=== PATIENT | female | born 1970 | race Caucasian/White ===

== ENCOUNTER → 2017-03-08 | Outpatient (CLI) | payer OTHER | END | disposition home or self-care (01) | LOC: RAD 10:55 | DX: R50.9 Fever, unspecified (principal); R53.83 Other fatigue ==

== ENCOUNTER 2017-06-17 13:52 | Emergency (ER) | payer OTHER ==
[~2017-06-17] VITALS: Ht 154.9 cm; Wt 89.8 kg
[2017-06-17] MEDS ORDERED: AMLODIPINE BESY10 MG PO (13:57)
[2017-06-17] MEDS ORDERED: LABETALOL HCL100 MG PO (13:57)
[2017-06-17] MEDS ORDERED: METFORMIN HCL500 MG PO (13:58)
[2017-06-17] MEDS ORDERED: LISINOPRIL40 MG PO (13:58)
[2017-06-17] MEDS ORDERED: HYDROCHLOROTHIA25 M1 PO (13:58)
[2017-06-17 14:40] LABS: BASO # 0.1 10*3/uL (0.0-0.1); BASO % 0.9 % (0.0-1.0); EOS # 0.2 10*3/uL (0.0-0.4); EOS % 2.5 % (1.0-4.0); HEMATOCRIT 46.8 % (37.0-47.0); HEMOGLOBIN 15.8 g/dl (12.0-16.0); LYMPH % 25.8 % (27.0-41.0); MEAN CELL VOLUME 89.7 fl (81.0-99.0); MEAN CORPUSCULAR HGB 30.3 pg (27.0-31.0); MEAN CORPUSCULAR HGB CONC 33.8 g/dl (33.0-37.0); MEAN PLATELET VOLUME 12.4 fl (9.6-12.3); MONO # 0.6 10*3/uL (0.1-1.0); MONO % 7.7 % (3.0-9.0); NEUT # 4.7 10*3/uL (2.3-7.9); NEUT % 62.3 % (47.0-73.0); PLATELET COUNT AUTOMATED 180 10*3/uL (130-400); RED BLOOD COUNT 5.22 10*6/uL (4.10-5.10); RED CELL DISTRI WIDTH 12.7 % (0-14.5); WHITE BLOOD COUNT 7.6 10*3/uL (4.8-10.8)
[2017-06-17 14:46] LABS: ACT PARTIAL THROMBO TIME 21.6 SECONDS (20.8-31.5)
[2017-06-17 14:55] LABS: ALBUMIN 3.5 gm/dl (3.1-4.5); ALKALINE PHOSPHATASE 126 U/L (45-117); BUN 8 mg/dl (7-24); CHLORIDE 100 mmol/L (98-107); CREATININE 0.84 mg/dL (0.55-1.02); LIPASE 85 U/L (73-393); POTASSIUM 3.8 mmol/L (3.5-5.1); SGOT/AST 36 IU/L (3-35); SGPT/ALT 54 U/L (12-78); SODIUM 134 mmol/L (136-145); TOTAL PROTEIN 7.6 gm/dL (6.4-8.2); TROPONIN I < 0.015 ng/ml (<0.045)
[2017-06-17] MEDS ORDERED: LABETALOL HYDR200 MG PO (16:28)
[2017-06-17] MEDS ORDERED: CYCLOBENZAPRINE10 MG PO (16:30)
== END 2017-06-17 16:32 | disposition home or self-care (01) ==
LOC: ED 13:52
PROVIDERS: Emergency Medicine
DX: M54.12 Radiculopathy, cervical region (principal); I10 Essential (primary) hypertension; Z98.890 Other specified postprocedural states; Z79.899 Other long term (current) drug therapy; Z90.710 Acquired absence of both cervix and uterus

== ENCOUNTER → 2019-03-17 | Outpatient (CLI) | payer OTHER ==
[~2019-03-17] MED LIST: AMLODIPINE BESY10 MG PO; CYCLOBENZAPRINE10 MG PO; HYDROCHLOROTHIA25 M1 PO; LABETALOL HCL100 MG PO; LABETALOL HYDR200 MG PO; LISINOPRIL40 MG PO; METFORMIN HCL500 MG PO
== END | disposition home or self-care (01) ==
LOC: RAD 13:31
DX: M25.571 Pain in right ankle and joints of right foot (principal)

== ENCOUNTER 2023-11-11 12:10 | Inpatient (IN) | payer BC ==
[~2023-11-11] VITALS: Ht 154.9 cm; Wt 83.9 kg
[~2023-11-11 12:10] MED LIST changes: -METFORMIN HCL500 MG PO; +METFORMIN HYDR500 MG PO
[2023-11-11 12:16] VITALS: BP 106/65
[2023-11-11] MEDS ORDERED: SODIUM CHLORIDE 0.9% 1,000 ML IV ONE ×3 (12:25→12:35)
[2023-11-11] MEDS ORDERED: ACETAMINOPHEN 325 MG TAB PO ONE (12:40)
[2023-11-11 13:05] LABS: HEMATOCRIT 43.3 % (37.0-47.0); MANUAL DIFF REFLEX YES; MEAN CELL VOLUME 91.4 fl (81.0-99.0); MEAN CORPUSCULAR HGB 29.1 pg (27.0-31.0); MEAN CORPUSCULAR HGB CONC 31.9 g/dl (33.0-37.0); MEAN PLATELET VOLUME 12.4 fl (9.6-12.3); PLATELET COUNT AUTOMATED 120 10*3/uL (130-400); RED BLOOD COUNT 4.74 10*6/uL (4.10-5.10); RED CELL DISTRI WIDTH 13.3 % (0-14.5); WHITE BLOOD COUNT 18.3 10*3/uL (4.8-10.8)
[2023-11-11] MEDS ORDERED: ACETAMINOPHEN 325 MG/10.15 ML UDC PO ONE (13:05)
[2023-11-11 13:23] LABS: TOTAL CELLS COUNTED 100 #CELLS
[2023-11-11 13:24] LABS: BURR CELLS FEW; PLATELET SUFFICIENCY LOW (NORMAL); POLYCHROMASIA SLIGHT; POTASSIUM 4.3 mmol/L (3.4-5.1); TOTAL PROTEIN 7.2 gm/dL (6.0-8.0)
[2023-11-11] MEDS ORDERED: MOUNJARO5 MG/0.51 SQ (13:36)
[2023-11-11] MEDS ORDERED: OXYBUTYNIN10 MG PO (13:36)
[2023-11-11] MEDS ORDERED: OMEPRAZOLE40 MG PO (13:36)
[2023-11-11] MEDS ORDERED: LOSARTAN POTAS100 M1 PO (13:37)
[2023-11-11] MEDS ORDERED: Ceftriaxone Sodium 1 GM/10 ML SYR IV ONE (13:50)
[2023-11-11 14:00] VITALS: BP 108/61
[2023-11-11 14:50] VITALS: BP 108/61
[2023-11-11] MEDS ORDERED: Piperacillin Sodium/Tazobact 50 ML IV ONE (15:10)
[2023-11-11] MEDS ORDERED: DEXTROSE 10 % IN WATER 250 ML IV PRN (16:50)
[2023-11-11] MEDS ORDERED: SODIUM CHLORIDE 0.9% 1,000 ML IV SCH (16:55)
[2023-11-11] MEDS ORDERED: DICLOFENAC SODIUM 50 MG TAB PO SCH (17:00)
[2023-11-11 18:14] VITALS: BP 103/56
[2023-11-11 18:25] LABS: BILIRUBIN 3+ (Negative); BLOOD 1+ (Negative); CLARITY Turbid (Clear); COLOR Dark Yellow (Yellow); GLUCOSE 1+ (Negative); KETONE Negative (Negative); LEUKO ESTERASE 3+ (Negative); NITRITE Positive (Negative)
[2023-11-11 18:49] LABS: EPITHELIAL CELLS TNTC; WBC TNTC wbc/hpf (0-5)
[2023-11-11 18:50] LABS: BACTERIA 2+
[2023-11-11 19:41] VITALS: BP 96/58
[2023-11-11 20:15] VITALS: BP 116/68
[2023-11-11] MEDS ORDERED: ACETAMINOPHEN 500 MG TAB PO PRN (21:00)
[2023-11-11] MEDS ORDERED: INSULIN LISPRO 1 UNIT/0.01 ML SQ SCH (22:00)
[2023-11-11] MEDS ORDERED: Oxybutynin Chloride 5 MG TAB PO SCH (22:00)
[2023-11-11] MEDS ORDERED: Labetalol Hydrochloride 200 MG TAB PO SCH (22:00)
[2023-11-12] VITALS: BP 110/66
[2023-11-12] MEDS ORDERED: Piperacillin Sodium/Tazobact 2.25 GM in SODIUM CHLORIDE 0.9% 50 ML IV SCH
[2023-11-12] MEDS ORDERED: OMEPRAZOLE 20 MG CAP PO SCH (06:00)
[2023-11-12] MEDS ORDERED: ALBUTEROL S5 MG/1 ML INH (06:12)
[2023-11-12 06:26] LABS: HEMATOCRIT 38.2 % (37.0-47.0); MEAN CORPUSCULAR HGB 29.4 pg (27.0-31.0); MEAN CORPUSCULAR HGB CONC 31.9 g/dl (33.0-37.0); PLATELET COUNT AUTOMATED 121 10*3/uL (130-400); RED BLOOD COUNT 4.15 10*6/uL (4.10-5.10); RED CELL DISTRI WIDTH 13.8 % (0-14.5); WHITE BLOOD COUNT 16.9 10*3/uL (4.8-10.8)
[2023-11-12 07:01] LABS: POTASSIUM 4.4 mmol/L (3.4-5.1)
[2023-11-12 07:24] LABS: MANUAL DIFF REFLEX YES
[2023-11-12 07:28] LABS: PLATELET SUFFICIENCY LOW (NORMAL); TOTAL CELLS COUNTED 100 #CELLS
[2023-11-12 07:29] LABS: VACUOLATION OF NEUTROPHILS SLIGHT
[2023-11-12 08:00] VITALS: BP 131/73
[2023-11-12] MEDS ORDERED: LISINOPRIL 40 MG TAB PO SCH (10:00)
[2023-11-12] MEDS ORDERED: HYDROCHLOROTHIAZIDE 25 MG TAB PO SCH (10:00)
[2023-11-12] MEDS ORDERED: Losartan Potassium 50 MG TAB PO SCH (10:00)
[2023-11-12] MEDS ORDERED: amLODIPine besylate 10 MG TAB PO SCH (10:00)
[2023-11-12] MEDS ORDERED: Benzocaine/Menthol 1 LOZ LOZENGE PO PRN (11:05)
[2023-11-12 12:00] VITALS: BP 130/76
[2023-11-12] MEDS ORDERED: Labetalol Hydrochloride 100 MG TAB PO SCH (14:00)
[2023-11-12 16:00] VITALS: BP 130/60
[2023-11-12] MEDS ORDERED: Ceftriaxone Sodium 2 GM in SYRINGE INFUSION 20 ML IV SCH (18:00)
[2023-11-12 20:00] VITALS: BP 94/62
[2023-11-12] MEDS ORDERED: Clindamycin Phosphate 50 ML IV SCH (20:00)
[2023-11-13] VITALS: BP 128/80
[2023-11-13 06:17] LABS: HEMATOCRIT 36.1 % (37.0-47.0); MEAN CELL VOLUME 92.1 fl (81.0-99.0); MEAN CORPUSCULAR HGB 29.1 pg (27.0-31.0); MEAN CORPUSCULAR HGB CONC 31.6 g/dl (33.0-37.0); MEAN PLATELET VOLUME 13.4 fl (9.6-12.3); PLATELET COUNT AUTOMATED 112 10*3/uL (130-400); RED BLOOD COUNT 3.92 10*6/uL (4.10-5.10); RED CELL DISTRI WIDTH 14.3 % (0-14.5); WHITE BLOOD COUNT 12.8 10*3/uL (4.8-10.8)
[2023-11-13 06:34] LABS: TOTAL PROTEIN 5.9 gm/dL (6.0-8.0)
[2023-11-13 07:02] LABS: MANUAL DIFF REFLEX YES
[2023-11-13 07:05] LABS: ATYPICAL LYMPHS 3 % (0-0); BASOPHILS 2 % (0-1); PLATELET SUFFICIENCY LOW (NORMAL); TOTAL CELLS COUNTED 100 #CELLS
[2023-11-13 07:12] LABS: TOXIC GRANULATION SLIGHT
[2023-11-13 08:00] VITALS: BP 118/80
[2023-11-13 12:00] VITALS: BP 135/87
[2023-11-13] MEDS ORDERED: Benzocaine/Menthol 1 LOZ LOZENGE PO SCH (12:00)
[2023-11-13 16:00] VITALS: BP 130/86
[2023-11-13 20:00] VITALS: BP 133/69
[2023-11-13] MEDS ORDERED: AMOXICILLI400 MG/51 PO (22:52)
[2023-11-14] VITALS: BP 132/70
[2023-11-14 06:18] LABS: HEMATOCRIT 35.1 % (37.0-47.0); MEAN CELL VOLUME 89.1 fl (81.0-99.0); MEAN CORPUSCULAR HGB 29.2 pg (27.0-31.0); MEAN CORPUSCULAR HGB CONC 32.8 g/dl (33.0-37.0); MEAN PLATELET VOLUME 12.5 fl (9.6-12.3); PLATELET COUNT AUTOMATED 121 10*3/uL (130-400); RED BLOOD COUNT 3.94 10*6/uL (4.10-5.10); WHITE BLOOD COUNT 9.9 10*3/uL (4.8-10.8)
[2023-11-14 06:24] LABS: MANUAL DIFF REFLEX YES
[2023-11-14 07:00] LABS: ALKALINE PHOSPHATASE 118 U/L (46-116); CHLORIDE 107 mmol/L (98-107); POTASSIUM 3.4 mmol/L (3.4-5.1); SGPT/ALT 43 U/L (5-49); TOTAL PROTEIN 5.5 gm/dL (6.0-8.0)
[2023-11-14 07:04] LABS: BUN 33 mg/dl (9-23)
[2023-11-14 07:09] LABS: ATYPICAL LYMPHS 3 % (0-0); BASOPHILS 1 % (0-1); BURR CELLS FEW; POLYCHROMASIA SLIGHT; ROULEAUX SLIGHT; TOTAL CELLS COUNTED 100 #CELLS; TOXIC GRANULATION SLIGHT
[2023-11-14 07:10] LABS: DOHLE BODIES FEW; PLATELET SUFFICIENCY LOW (NORMAL); VACUOLATION OF NEUTROPHILS SLIGHT
[2023-11-14 09:10] VITALS: BP 136/66
[2023-11-14 12:00] VITALS: BP 155/76
== END 2023-11-14 15:00 | disposition home or self-care (01) | DRG 545 ==
LOC: ED 12:10 → 4E 15:16 → EDHOLD 15:16 → 4E 18:27
PROVIDERS: Emergency Medicine; ADMIT Internal Medicine; ATTEND Internal Medicine
DX: I00 Rheumatic fever without heart involvement (principal); N17.0 Acute kidney failure with tubular necrosis; R65.11 Systemic inflammatory response syndrome (SIRS) of non-infectious origin with acute organ dysfunction; N18.4 Chronic kidney disease, stage 4 (severe); J02.0 Streptococcal pharyngitis; B95.0 Streptococcus, group A, as the cause of diseases classified elsewhere; Z20.822 Contact with and (suspected) exposure to COVID-19; E80.6 Other disorders of bilirubin metabolism; E66.9 Obesity, unspecified; M54.12 Radiculopathy, cervical region; R74.01 Elevation of levels of liver transaminase levels; K21.9 Gastro-esophageal reflux disease without esophagitis; R32 Unspecified urinary incontinence; I12.9 Hypertensive chronic kidney disease with stage 1 through stage 4 chronic kidney disease, or unspecified chronic kidney disease; E11.22 Type 2 diabetes mellitus with diabetic chronic kidney disease; Z68.34 Body mass index [BMI] 34.0-34.9, adult; Z79.4 Long term (current) use of insulin; Z79.899 Other long term (current) drug therapy; Z79.01 Long term (current) use of anticoagulants; Z79.2 Long term (current) use of antibiotics; Z98.891 History of uterine scar from previous surgery

== ENCOUNTER → 2023-11-21 | Outpatient (CLI) | payer BC ==
[~2023-11-21] MED LIST changes: +ALBUTEROL S5 MG/1 ML INH; +AMOXICILLI400 MG/51 PO; +LOSARTAN POTAS100 M1 PO; +MOUNJARO5 MG/0.51 SQ; +OMEPRAZOLE40 MG PO; +OXYBUTYNIN10 MG PO
[2023-11-21 07:23] LABS: HEMATOCRIT 40.9 % (37.0-47.0); MEAN CELL VOLUME 90.9 fl (81.0-99.0); MEAN CORPUSCULAR HGB 28.9 pg (27.0-31.0); MEAN CORPUSCULAR HGB CONC 31.8 g/dl (33.0-37.0); MEAN PLATELET VOLUME 10.5 fl (9.6-12.3); RED BLOOD COUNT 4.5 10*6/uL (4.10-5.10); RED CELL DISTRI WIDTH 14.1 % (0-14.5); WHITE BLOOD COUNT 5.2 10*3/uL (4.8-10.8)
[2023-11-21 07:54] LABS: ALKALINE PHOSPHATASE 82 U/L (46-116); BUN 11 mg/dl (9-23); CHLORIDE 106 mmol/L (98-107); POTASSIUM 3.5 mmol/L (3.4-5.1); SGPT/ALT 44 U/L (5-49); TOTAL PROTEIN 7.2 gm/dL (6.0-8.0)
== END | disposition home or self-care (01) ==
LOC: LAB 07:04
PROVIDERS: ATTEND Family Medicine
DX: E86.0 Dehydration (principal)